=== PATIENT | female | born 1960 | race Caucasian/White ===

== ENCOUNTER 2020-11-28 15:59 | Emergency (ER) | payer OTHER ==
[~2020-11-28] VITALS: Ht 165.1 cm; Wt 65.3 kg
[2020-11-28 16:15] VITALS: BP 133/78
--- NOTE | 2020-11-28 16:20 | NUR ---
BIBA TO BED 1.
[2020-11-28] MEDS ORDERED: oxyCODONE/APAP 5/325 MG 1 TAB TAB PO ONE (16:35)
--- NOTE | 2020-11-28 16:42 | NUR ---
[facility] AT BEDSIDE FOR BLOOD DRAW
[2020-11-28 16:53] LABS: BASOPHILS # (AUTO) 0.1 K/uL (0.00-0.22); BASOPHILS % (AUTO) 0.6 % (0.0-2.0); EOSINOPHILS # (AUTO) 0.1 K/uL (0-0.4); EOSINOPHILS % (AUTO) 0.7 % (0.0-4.0); HEMATOCRIT 34.8 % (36-48); HEMOGLOBIN 11.4 g/dL (12.0-16.0); LYMPHOCYTES # (AUTO) 0.8 K/uL (2.5-16.5); LYMPHOCYTES % (AUTO) 9.6 % (20.5-51.1); MEAN CORPUSCULAR HEMOGLOBIN 30 pg (27-31); MEAN CORPUSCULAR HGB CONC 33 g/dL (33-37); MEAN CORPUSCULAR VOLUME 91.2 fL (80-94); MONOCYTES # (AUTO) 0.9 K/uL (0.8-1.0); MONOCYTES % (AUTO) 10.9 % (1.7-9.3); NEUTROPHILS # (AUTO) 6.4 K/uL (1.8-7.7); NEUTROPHILS % (AUTO) 78.2 % (42.2-75.2); PLATELET COUNT (AUTO) 651 K/uL (140-450); RED BLOOD CELL COUNT(AUTO) 3.81 MIL/uL (4.20-5.40); RED CELL DISTRIBUTION WIDTH 15.7 % (11.6-13.7); WHITE BLOOD COUNT (AUTO) 8.1 K/uL (4.8-10.8)
[2020-11-28 16:55] VITALS: BP 133/78
--- NOTE | 2020-11-28 16:55 | NUR ---
BIBA FROM [facility] FOR LEFT CHEST PAIN X 1 WEEK. RADIATING TO L ARM WITH TINGLINING. PT STATES 6/10 INTERMITTENT PRESSURE PAIN. R WOUND TO LT LEG NOTED, GAUZE IN PLACE. PMH: CELLULITIS WENDY LEGS, HEART MURMURS, ADENOCARCINOMA ALLERGIES: TETRACYCLINE, TRAMADOL
--- NOTE | 2020-11-28 16:55 | NUR ---
XRAY AT BEDSIDE
[2020-11-28 17:16] LABS: ALBUMIN 2.6 g/dL (3.4-5.0); ANION GAP 10.1 (8-16); CARBON DIOXIDE 29.2 mmol/L (21-32); CREATININE 0.5 mg/dL (0.6-1.3); POTASSIUM 3.3 mmol/L (3.5-5.1); TOTAL BILIRUBIN 0.4 mg/dL (0.0-1.0)
--- NOTE | 2020-11-28 17:30 | NUR ---
PT REPORTS 12/[address] DUDLEY MADE AWARE. NO FURTHER ORDERS RECEIVED.
--- NOTE | 2020-11-28 19:09 | NUR ---
REPORT GIVEN TO YANELY EDWARDS FOR CONTINUITY OF CARE
--- NOTE | 2020-11-28 19:12 | NUR ---
REPORT RECEIVED FROM GRACE MARS FOR CONTINUITY OF CARE.
--- NOTE | 2020-11-28 19:13 | NUR ---
[facility] at bedside.
--- NOTE | 2020-11-28 19:14 | NUR ---
CALLED [facility] AND UPDATED REGARDING PTS RETURN TO FACILITY.
--- NOTE | 2020-11-28 19:20 | NUR ---
Patient discharged with v/s stable. Written and verbal after care instructions given and explained. Patient verbalized understanding. [facility] to halfway, [facility]. All questions addressed prior to discharge. Advised to follow up with PMD.
== END 2020-11-28 19:20 ==
LOC: MED 15:59
DX: R07.9 Chest pain, unspecified (principal); M79.604 Pain in right leg
CPT/HCPCS: 36415; 71045; 80053; 84484; 85025; 93005; 99285